=== PATIENT | male | born 1990 | race Caucasian/White ===

== ENCOUNTER 2017-10-13 21:48 | Emergency (ER) | payer MEDICAID ==
[~2017-10-13] VITALS: Ht 170.2 cm; Wt 67.4 kg
[~2017-10-13 21:48] MED LIST: HYDR-569 PO
[2017-10-13 22:01] VITALS: BP 132/79
[2017-10-13] MEDS ORDERED: acetaminophen 325mg tablet PO ONE (22:40)
[2017-10-13] MEDS ORDERED: ACYC-202 PO (23:24)
[2017-10-13] MEDS ORDERED: BACDS PO (23:24)
== END 2017-10-13 23:36 | disposition home or self-care (01) ==
LOC: ER 21:48
DX: A60.00 Herpesviral infection of urogenital system, unspecified (principal); L03.116 Cellulitis of left lower limb; S90.862A Insect bite (nonvenomous), left foot, initial encounter; F12.90 Cannabis use, unspecified, uncomplicated; F15.90 Other stimulant use, unspecified, uncomplicated; Z79.2 Long term (current) use of antibiotics; Z79.899 Other long term (current) drug therapy; W57.XXXA Bitten or stung by nonvenomous insect and other nonvenomous arthropods, initial encounter; Y93.89 Activity, other specified; Y92.89 Other specified places as the place of occurrence of the external cause; Y99.8 Other external cause status
CPT/HCPCS: 99283

== ENCOUNTER 2019-10-27 16:48 | Emergency (ER) | payer MEDICAID ==
[~2019-10-27 16:48] MED LIST changes: +HYDR-4383 PO; -HYDR-569 PO
== END 2019-10-27 17:23 | disposition home or self-care (01) ==
LOC: ER 16:49
DX: S81.019A Laceration without foreign body, unspecified knee, initial encounter (principal); Z53.21 Procedure and treatment not carried out due to patient leaving prior to being seen by health care provider

== ENCOUNTER 2024-12-28 15:59 | Emergency (ER) | payer MEDICAID ==
[~2024-12-28] VITALS: Ht 167.6 cm; Wt 103.0 kg
--- NOTE | 2024-12-28 16:06 | ELECTROCARDIOGRAPH REPORT ---
[facility] Test Date: 2024-12-28 Test Time: 16:05:10 Pat Name: DARRIUS SCOTT Department: EMERGENCY ROOM [id number] Room: Gender: M [employer] Machine Operator: : 1990 Requested By: ELVIS HARRELL Order Number: [id number] Reading MD: Dr. Luis Garcia Measurements Intervals [place] Rate: 75 P: 71 NH: 203 QRS: 63 QRSD: 74 T: 57 QT: 350 QTc: 391 Interpretive Statements Sinus rhythm Borderline prolonged NH interval Electronically Signed On 12-28-2024 17:26:[address] Luis Garcia Please click the below link to view image of tracing.
[2024-12-28 16:21] LABS: MEAN PLATELET VOLUME 8.8 FL (7.4-10.4); RED CELL DISTRIBUTION WIDTH 12.8 % (11.5-14.5)
[2024-12-28 16:23] VITALS: TEMP 97.8
--- NOTE | 2024-12-28 16:27 | Physician Documentation ---
History of Present Illness ~ Chief Complaint: Chest Pain Stated Complaint: CP Time Seen by MD: 19:02 Primary Medical Doctor: none HPI 34-year-old male who presents reporting that he had an episode of chest pain x1 hour earlier today. He denies has been at this time, and all denies diaphoresis or nausea. However, he does admit to having he is that she has earlier. Strong cardiac history in both his sister, who of heart failure due to methamphetamine in his father. He himself does also admit to meth use, but has been clean for more than two years. Medication Reconciliation Allergies: Coded Allergies: No Known Allergies (Unverified , 12/28/24) Scheduled Hydrocodone/Acetaminophen ([place] 5-325 Tablet), 1 TAB PO Q12H PRN Past Medical History Past Medical History: No Pertinent History Past Surgical History: no surgical history Alcohol Use: None Drug Use: marijuana, methamphetamine Lives with: Family Lives In: Home Occupation: employed Physical Exam Vital Signs: Temperature: 97.8, Source: Temporal, Heart Rate: 79, Respiratory Rate: 16, BP: 142/88, Pulse Oximetry: 98, Weight: 103.000 Oxygen Flow Rate: 0 Physical Exam General: Alert, no apparent distress. Neck: Full range of motion. Respiratory: Lungs clear, no respiratory distress. Chest: No accessory muscle use. Cardiovascular: Regular rate and rhythm, no murmurs. Gastrointestinal: Soft, nontender, nondistended. Bowels sounds present. Extremities: Normal range of motion, no deformity. Neurologic: Oriented x4. Psychiatric: Normal mood and affect. Skin: Normal color, warm and dry. No edema, no ecchymosis. Progress Results/Orders Results/Orders Vital Signs 12/28/24 12/28/24 16:23 19:24 Temp 97.8 Pulse 79 87 Resp 16 15 B/P (MAP) 142/88 154/65 (94) Pulse Ox 98 99 O2 Flow Rate 0 Laboratory Tests Test 12/28/24 16:12 12/28/24 18:01 White Blood Count 11.0 Red Blood Count 4.89 Hemoglobin 15.1 Hematocrit 44.3 Mean Corpuscular Volume 90.7 Mean Corpuscular Hemoglobin 30.8 Mean Corpuscular Hemoglobin Concent 34.0 Red Cell Distribution Width 12.8 Platelet Count 329 Mean Platelet Volume 8.8 Neutrophils (%) (Auto) 72.6 Lymphocytes (%) (Auto) 17.3 L Monocytes (%) (Auto) 8.5 Eosinophils (%) (Auto) 0.8 Basophils (%) (Auto) 0.8 Neutrophils # (Auto) 8.0 H Lymphocytes # (Auto) 1.9 Monocytes # (Auto) 0.9 Eosinophils # (Auto) 0.1 Basophils # (Auto) 0.1 CBC Comment Sodium Level 139 Potassium Level 3.8 Chloride Level 104 Carbon Dioxide Level 26.8 Anion Gap 8 Blood Urea Nitrogen 16 Creatinine 0.90 Estimated GFR/1.73 m2 > 90 BUN/Creatinine Ratio 17.8 Glucose Level 86 Calcium Level 9.1 Magnesium Level 2.3 Troponin I High Sensitivity 4 4 Pro-B-Type Natriuretic Peptide < 30 Albumin 4.1 Chemistry Comments Troponin I High Sens Percent Delta 0 Troponin I Hi Sens Absolute Change 0 EKG/XRAY/CT/US/VASC/MRI EKG : Additional Comment 1605: EKG shows regular sinus rhythm rate of 75, no ectopy, no ST segment elevation, QTC 399 ms. Medical Decision Making Findings Exam without evidence of volume overload so doubt heart failure. EKG without signs of active ischemia. Given the timing of pain to ER presentation, single troponin negative, so doubt NSTEMI. Presentation not consistent with acute PE (Wells low risk, PERC negative_),pneumothorax (not visualized on chest xr), thoracic aortic dissection, pericarditis, tamponade, pneumonia (no infectious symptoms, clear chest xr), myocarditis (no recent illness, neg trop). so plan to discharge patient home with PMD follow up this week. Provided with strict return precautions to the emergency department.. Differential Dx:Considerations: Include: angina, aortic dissection, chest wall pain, cholelithiasis, CHF, costochondritis, esophageal reflux/spasm, gastritis, herpes zoster, myocardial infarction, pericarditis, pleuritis, pancreatitis, pneumonia, pneumothorax, pulmonary embolus, other Departure Disposition: 01 HOME / SELF CARE / HOMELESS Impression: Primary Impression: Chest pain Condition: Stable Discharge Instructions: Nonspecific Chest Pain, Adult Additional Instructions: Exam without evidence of volume overload so doubt heart failure. EKG without signs of active ischemia. Given the timing of pain to ER presentation, single troponin negative, so doubt NSTEMI. Presentation not consistent with acute PE (Wells low risk, PERC negative_),pneumothorax (not visualized on chest xr), thoracic aortic dissection, pericarditis, tamponade, pneumonia (no infectious symptoms, clear chest xr), myocarditis (no recent illness, neg trop). so plan to discharge patient home with PMD follow up this week. Provided with strict return precautions to the emergency department. Return to the emergency department if you have any worsening or recurrent symptoms or any additional concerning symptoms that we discussed here today i.e. increased chest pain shortness of breath palpitations tingling to her hands or feet lightheadedness or any other additional concerning symptoms. Referrals: NO PRIMARY CARE PROVIDER (PCP) Education Educated: Patient Educated regarding: diagnosis, treatment, need for follow up Signature Scribe Signature: x Attestation: The note accurately reflects work and decisions made by me.Elvis Ramachandran NP 12/28/24 16:28 ELVIS HARRELL NP Dec 28, 2024 16:27 DAYNA DEL ROSARIO Dec 28, 2024 19:31
--- NOTE | 2024-12-28 16:34 | RADIOLOGY REPORT ---
EXAM: DI CHEST,SINGLE VIEW HISTORY: CP COMPARISON: None TECHNIQUE: PA upright view of the chest was performed. FINDINGS: No pneumothorax, consolidative infiltrates, or pulmonary edema. The heart is not enlarged. There are calcified lymph nodes in the left hilum. There is an old fracture of the right mid clavicle. There is at least 1 old healed left rib fracture. IMPRESSION: Old granulomatous disease of the chest without evidence of acute intrathoracic process.
[2024-12-28 16:41] LABS: CREATININE 0.90 MG/DL (0.60-1.10); PRO BRAIN NATRIURETIC PEPTIDE < 30 PG/ML (0-125); TOTAL CARBON DIOXIDE 26.8 MMOL/L (24-32); eCRCL 103 ML/MIN; eGFR > 90 ML/MIN
[2024-12-28 19:24] VITALS: BP 154/65; PULSE 87; RESP 15; O2SAT 99
== END 2024-12-28 19:36 | disposition home or self-care (01) ==
LOC: ER 16:00
DX: R07.89 Other chest pain (principal); F12.90 Cannabis use, unspecified, uncomplicated; F15.90 Other stimulant use, unspecified, uncomplicated; Z79.899 Other long term (current) drug therapy
CPT/HCPCS: 36415; 71045; 80048; 83735; 83880; 84484; 85025; 93005; 99285